=== PATIENT | female | born 1995 | race African-American/Black ===

== ENCOUNTER 2019-01-29 21:17 | Emergency (ER) | payer OTHER ==
[~2019-01-29] VITALS: Ht 149.9 cm; Wt 61.2 kg
[2019-01-29] MEDS ORDERED: ZESTRIL20 MG PO (21:31)
[2019-01-29 22:36] LABS: ABSOLUTE BASOPHILS 0.1 thou/uL (0.0-0.2); ABSOLUTE EOSINOPHILS 0.5 thou/uL (0.0-0.7); ABSOLUTE LYMPHOCYTES 3.1 thou/uL (0.8-5.3); ABSOLUTE MONOCYTES 0.6 thou/uL (0.0-1.2); BASOPHILS 0.9 %; EOSINOPHILS 5.7 %; HEMATOCRIT 39.2 % (37.0-47.0); HEMOGLOBIN 13.4 gm/dL (12.0-15.0); LYMPHOCYTES 37.4 %; MCH 30.6 pg (26.0-34.0); MCHC 34.2 g/dL (28.0-37.0); MCV 89.6 fL (80.0-100.0); MPV 9.2 fl. (7.2-11.1); NUCLEATED RBCS 0 /100WBC; PLATELET COUNT* 247 thou/uL (150-400); RBC 4.38 mil/uL (4.20-5.00); RDW-CV 13.4 % (10.5-14.5); WBC 8.3 thou/uL (4.0-11.0)
[2019-01-29 22:50] LABS: CALCIUM 8.5 mg/dL (8.5-10.1); CREATININE 0.9 mg/dL (0.6-1.3)
[2019-01-29 22:56] LABS: ALBUMIN 3.2 g/dL (3.4-5.0); TOTAL BILIRUBIN 0.2 mg/dL (<0.1-1.0); TOTAL PROTEIN 6.8 g/dL (6.4-8.2)
[2019-01-29] MEDS ORDERED: CARAFATE 1 GM TA1 GM PO (23:26)
[2019-01-29 23:43] VITALS: BP 132/98
--- NOTE | 2019-01-30 16:57 | EKG ---
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
== END 2019-01-29 23:44 | disposition home or self-care (01) ==
LOC: M.ERS 21:17
PROVIDERS: Personal Emergency Response Attendant
DX: R12 Heartburn (principal); I10 Essential (primary) hypertension; J45.909 Unspecified asthma, uncomplicated